=== PATIENT | female | born 1955 | race Caucasian/White ===

== ENCOUNTER 2021-02-03 11:06 | Emergency (ER) | payer MEDICARE, OTHER ==
[~2021-02-03] VITALS: Ht 165.1 cm; Wt 72.2 kg
[2021-02-03 11:20] VITALS: BP 153/75
[2021-02-03] MEDS ORDERED: PROPOFOL 10 MG/ML, 20ML IVPush ONE ×2 (12:00→13:00)
[2021-02-03] MEDS ORDERED: ONDANSETRON 2MG/ML, 2ML IVPush ONE (12:00)
[2021-02-03] MEDS ORDERED: FENTANYL PF 100 MCG/2ML IVPush ONE (12:00)
[2021-02-03] MEDS ORDERED: ONDANSETRON 2MG/ML, 2ML ONE (12:05)
[2021-02-03] MEDS ORDERED: PROPOFOL 10 MG/ML, 20ML ONE (12:05)
[2021-02-03] MEDS ORDERED: FENTANYL PF 100 MCG/2ML ONE ×2 (12:06→12:39)
--- NOTE | 2021-02-03 12:20 | NUR ---
I AM ASSUMING CARE OF THIS PT FROM [place] AT THIS TIME. SBAR WAS EXCHANGED AT THE BEDSIDE.
--- NOTE | 2021-02-03 12:22 | NUR ---
ERP IS AT THE BEDSIDE FOR CLOSED REDUCTION OF LEFT WRIST.
--- NOTE | 2021-02-03 12:27 | NUR ---
PREPARING FOR PROCEDURAL SEDATION. TIME OUT ACKNOWLEDGED AT 1225 PM.
[2021-02-03] MEDS ORDERED: FENTANYL PF 100 MCG/2ML IV ONE (13:00)
--- NOTE | 2021-02-03 13:07 | NUR ---
TATIANA (RN) WILL BE ASSUMING CARE OF THIS PT WHILE I HAVE A LUNCHBREAK. SBAR WAS EXCHANGED AT THE BEDSIDE.
--- NOTE | 2021-02-03 13:59 | NUR ---
FLOAT RN AT BEDSIDE TO DC PT FOR PRIMARY RNMINA. PT AMBULATORY C STEADY GAIT, VSS. SLING APPLIED, SPLINT/SLING EDUCATION PROVIDED, PT VERBALIZED UNDERSTANDING.
== END 2021-02-03 14:21 | disposition home or self-care (01) ==
LOC: ED 13:50
DX: S52.572A Other intraarticular fracture of lower end of left radius, initial encounter for closed fracture (principal); S52.602A Unspecified fracture of lower end of left ulna, initial encounter for closed fracture; W01.0XXA Fall on same level from slipping, tripping and stumbling without subsequent striking against object, initial encounter; Y93.89 Activity, other specified; Y92.009 Unspecified place in unspecified non-institutional (private) residence as the place of occurrence of the external cause; Y99.8 Other external cause status
CPT/HCPCS: 25605; 73100; 96374; 99152; 99285; J2405; J2704; J3010